=== PATIENT | female | born 1960 | race Caucasian/White ===

== ENCOUNTER 2020-01-15 17:01 | Emergency (ER) | payer BC ==
[~2020-01-15] VITALS: Ht 167.6 cm; Wt 78.6 kg
[~2020-01-15 17:01] MED LIST: ASPIRIN E.C.325 MG PO; BENTYL 10MG10 MG/CAP PO; ESCITALOPRAM; HCTZ; LOMOTIL 0.025 M1 TAB PO; PRIL40; PRINIVIL2.5 MG; XANAX0.5 MG PO; ZYRTEC-D 5 MG-11 TER PO
[2020-01-15] MEDS ORDERED: WALKER MC (18:29)
[2020-01-15] MEDS ORDERED: NORCO 325 MG-51 TAB PO (18:29)
[2020-01-15 19:05] VITALS: BP 138/66; PULSE 82; TEMP 97.7
== END 2020-01-15 20:10 | disposition home or self-care (01) ==
LOC: COL.ER 17:01
DX: S82.142A Displaced bicondylar fracture of left tibia, initial encounter for closed fracture (principal); I10 Essential (primary) hypertension; K21.9 Gastro-esophageal reflux disease without esophagitis; F41.9 Anxiety disorder, unspecified; Z79.82 Long term (current) use of aspirin; W01.0XXA Fall on same level from slipping, tripping and stumbling without subsequent striking against object, initial encounter; X50.1XXA Overexertion from prolonged static or awkward postures, initial encounter; Y92.009 Unspecified place in unspecified non-institutional (private) residence as the place of occurrence of the external cause
CPT/HCPCS: J3010; Q4041

== ENCOUNTER → 2020-05-01 | Outpatient (CLI) | payer BC ==
[~2020-05-01] MED LIST changes: +NORCO 325 MG-51 TAB PO; +WALKER MC
== END ==
LOC: MC.RAD 16:45
DX: Z12.31 Encounter for screening mammogram for malignant neoplasm of breast (principal); Z01.411 Encounter for gynecological examination (general) (routine) with abnormal findings